=== PATIENT | female | born 2000 | race Hispanic/Latino ===

== ENCOUNTER 2020-06-13 16:14 | Emergency (ER) | payer OTHER ==
--- NOTE | 2020-06-13 19:16 | ER ---
Nurse's Notes [facility] Name: Deidre Freeman Age: 19 yrs Sex: Female : 2000 Arrival Date: 06/13/2020 Time: 16:21 Bed Waiting Private MD: Diagnosis: Presentation: 06/13 16:26 Chief complaint: Patient states: Small itchy rash to L outer leg for 4 days. Got worse ll1 today. + RICHARDSON today. Noticed breast tenderness for 4 days. Coronavirus screen: Client denies travel out of the [place] in the last 14 days. At this time, the client does not indicate any symptoms associated with coronavirus-19. Ebola Screen: Patient denies travel to an Ebola-affected area in the 21 days before illness onset. Initial Sepsis Screen: Does the patient meet any 2 criteria? No. Patient's initial sepsis screen is negative. Does the patient have a suspected source of infection? Yes: Skin breakdown/wound. Risk Assessment: Do you want to hurt yourself or someone else? Patient reports no desire to harm self or others. Onset of symptoms was June 10, 2020. 16:26 Method Of Arrival: Ambulatory ll1 16:26 Acuity: ENRIQUETA 4 ll1 Historical: - Allergies: 16:27 No Known Allergies; ll1 - PMHx: 16:27 None; ll1 - PSHx: 16:27 None; ll1 - Immunization history:: Flu vaccine is up to date. - Social history:: Smoking status: Patient denies any tobacco usage or history of. Vital Signs: 16:26 BP 139 / 89; Pulse 87; Resp 17; Temp 97.9; Pulse Ox 98% ; Pain 4/10; ll1 ED Course: 16:21 Patient arrived in ED. ds1 16:27 Triage completed. ll1 16:28 Arm band placed on. ll1 Administered Medications: No medications were administered Outcome: 19:15 Patient left the ED. ll1 Signatures: Cherelle Ogden ds1 Josue Martínez, RN RN ll1
[2020-06-13 19:20] VITALS: BP 139/89; TEMP 97.9; O2SAT 98
== END 2020-06-13 19:15 | disposition left against medical advice (07) ==
LOC: ER 16:14
DX: Z53.21 Procedure and treatment not carried out due to patient leaving prior to being seen by health care provider (principal)
CPT/HCPCS: 99281